=== PATIENT | female | born 1935 | race Caucasian/White ===

== ENCOUNTER 2017-02-23 07:42 | Emergency (ER) | payer MEDICARE, BC ==
[~2017-02-23] VITALS: Ht 160 cm; Wt 55.5 kg
[2017-02-23] MEDS ORDERED: LEVOTHYROXIN0.075 MG PO (07:49)
[2017-02-23] MEDS ORDERED: ALENDRONATE SOD70 MG PO (07:49)
[2017-02-23] MEDS ORDERED: ESTRADIOL0.5 M1 PO (07:49)
[2017-02-23] MEDS ORDERED: CEPHALEXIN500 M2 PO (08:20)
[2017-02-23 08:29] VITALS: BP 153/65
== END 2017-02-23 08:31 | disposition home or self-care (01) ==
LOC: ED 07:42
DX: S01.511A Laceration without foreign body of lip, initial encounter (principal); S02.5XXA Fracture of tooth (traumatic), initial encounter for closed fracture; W01.198A Fall on same level from slipping, tripping and stumbling with subsequent striking against other object, initial encounter; Y92.009 Unspecified place in unspecified non-institutional (private) residence as the place of occurrence of the external cause; Z23 Encounter for immunization
CPT/HCPCS: 90715; A4550

== ENCOUNTER 2022-01-22 13:00 | Outpatient (RCR) | payer MEDICARE, BC ==
[~2022-01-22 13:00] MED LIST: ALENDRONATE SOD70 MG PO; CEPHALEXIN500 M2 PO; ESTRADIOL0.5 M1 PO; LEVOTHYROXIN0.075 MG PO
== END 2022-02-06 | disposition home or self-care (01) ==
LOC: PT
DX: R29.898 Other symptoms and signs involving the musculoskeletal system (principal); R26.81 Unsteadiness on feet